=== PATIENT | female | born 1935 | race Caucasian/White ===

== ENCOUNTER 2016-07-17 15:02 | Inpatient (IN) | payer BC, OTHER ==
[~2016-07-17] VITALS: Ht 152.4 cm; Wt 43.1 kg
[2016-07-17] MEDS ORDERED: TEMA15CA5 PO (15:17)
[2016-07-17] MEDS ORDERED: MIRT15TA PO (15:17)
[2016-07-17] MEDS ORDERED: LOVA40TA2 PO (15:17)
[2016-07-17] MEDS ORDERED: LISI1TAB13 PO (15:17)
--- NOTE | 2016-07-17 15:41 | NUR ---
MSE COMPLETED, SBAR REPORT TO CORY HUERTA, BELONGING LIST DONE, ADMIT ORDER WRITTEN. PT TO U.
[2016-07-17] MEDS ORDERED: LORAZEPAM 1 MG TABLET PO PRN (16:15)
[2016-07-17] MEDS ORDERED: ACETAMINOPHEN 325 MG TABLET PO PRN (16:15)
[2016-07-17] MEDS ORDERED: MAG HYDROX/AL HYDROX/SIMETH 30 ML LIQUID UDC PO PRN (16:15)
[2016-07-17] MEDS ORDERED: MAGNESIUM HYDROXIDE 30 ML LIQUID UDC PO PRN (16:15)
[2016-07-17] MEDS ORDERED: LORAZEPAM 0.5 MG TABLET PO PRN (16:15)
[2016-07-17 20:02] VITALS: BP 142/83
[2016-07-17] MEDS: ZOLPIDEM 5 MG TABLET PO PRN (21:39)
[2016-07-18 07:30] VITALS: BP 135/82
[2016-07-18] MEDS: ALPRAZOLAM 0.25 MG TABLET PO SCH (10:39)
[2016-07-18] MEDS: VENLAFAXINE XR 37.5 MG CAP.SR.24H PO SCH (10:39)
[2016-07-18] MEDS: LISINOPRIL 20 MG TABLET PO SCH (12:15)
[2016-07-18] MEDS: HYDROCHLOROTHIAZIDE 25 MG TABLET PO SCH (12:30)
[2016-07-18 15:05] LABS: THYROID STIMULATING HORMONE 1.179 mIU/mL (0.358-3.740)
[2016-07-18 15:42] VITALS: BP 111/63
[2016-07-18] MEDS: ATORVASTATIN 40 MG TABLET PO SCH (20:03)
[2016-07-18 21:04] VITALS: BP 116/66
--- NOTE | 2016-07-18 21:18 | NUR ---
PATIENT RECEIVED IN ACTIVITIES ROOM WATCHING T.V. PATIENT PLEASANT UPON APPROACH, NO AGGRESSIVE OR COMBATIVE BEHAVIOR NOTED WILL CONTINUE TO MONITOR AND REDIRECT NEEDED. PATIENT DENIES SI, WITH FLAT AFFECT WILL CONTINUE TO MONITOR, PATIENT ENCOURAGED TO EXPRESS FEELINGS AND CONCERNS. PATIENT COMPLAINT WITH HS MEDICATION. NO AGITATION NOTED. PATIENT ABLE TO MAKE NEEDS KNOWN, PATIENT DENIES PAIN AT THIS TIME, WILL CONTINUE TO MONITOR.
[2016-07-18] MEDS: ZOLPIDEM 5 MG TABLET PO PRN (21:46)
[2016-07-19 07:30] VITALS: BP 122/73
[2016-07-19 07:35] LABS: BILIRUBIN,TOTAL 0.2 mg/dL (0.2-1.0); CREATININE 0.8 mg/dL (0.6-1.3); MAGNESIUM 1.9 mg/dL (1.8-2.4); PHOSPHOROUS 3.5 mg/dL (2.5-4.9); POTASSIUM 4.2 mmol/L (3.5-5.1); TOTAL PROTEIN, SERUM 6.6 g/dL (6.4-8.2)
[2016-07-19 07:48] LABS: BASOPHILS % (AUTO) 0.8 % (0.0-2.0); EOSINOPHILS # (AUTO) 0.2 K/uL (0.0-0.7); EOSINOPHILS % (AUTO) 4.2 % (0.0-7.0); HEMATOCRIT 34.5 % (37-47); HEMOGLOBIN 11.7 G/DL (12.0-16.0); LYMPHOCYTES # (AUTO) 1.5 K/UL (0.8-4.8); LYMPHOCYTES % (AUTO) 31.2 % (20.5-51.5); MEAN CORPUSCULAR HGB CONC 34 g/dL (32.0-37.0); MEAN CORPUSCULAR VOLUME 85.3 FL (81.0-99.0); MONOCYTES # (AUTO) 0.5 K/UL (0.1-1.30); MONOCYTES % (AUTO) 9.7 % (0.0-11.0); NEUTROPHILS # (AUTO) 2.5 K/UL (1.8-8.9); NEUTROPHILS % (AUTO) 54.1 % (38.5-71.5); PLATELET COUNT (AUTO) 270 K/UL (150-450); RED BLOOD CELL COUNT(AUTO) 4.04 MIL/UL (4.2-5.4); WHITE BLOOD COUNT (AUTO) 4.7 K/UL (4.0-11.2)
[2016-07-19] MEDS: VENLAFAXINE XR 37.5 MG CAP.SR.24H PO SCH (08:22)
[2016-07-19] MEDS: ALPRAZOLAM 0.25 MG TABLET PO SCH (08:23)
[2016-07-19] MEDS: LISINOPRIL 20 MG TABLET PO SCH (08:23)
[2016-07-19] MEDS: HYDROCHLOROTHIAZIDE 25 MG TABLET PO SCH (08:23)
--- NOTE | 2016-07-19 12:49 | NUR ---
Initial discharge instructions: Pt resides at home with her son and caregiver [[address] [place],[address];[phone]].Per pt,she would like to return home with her son upon discharge.QUINTON unable to contact pt's son,Mike due to being developmentally disabled (autism).Therefore,QUINTON called and left a voicemail for pt's caregiver-Mackenzie Delilah [phone].QUINTON will speak with pt,caregiver,and MD regarding appropriate discharge plans.QUINTON will form a safe and proper discharge.
[2016-07-19 15:10] VITALS: BP 122/68
--- NOTE | 2016-07-19 16:19 | NUR ---
UR Note: QUINTON faxed current clinicals to [facility] SCHUSTER [ /Fx: [phone]]. Awaiting authorization, Tracking #[id number].
[2016-07-19 20:06] VITALS: BP 112/54
[2016-07-19] MEDS: ATORVASTATIN 40 MG TABLET PO SCH (20:47)
[2016-07-19] MEDS: ZOLPIDEM 5 MG TABLET PO PRN (21:46)
[2016-07-20 07:30] VITALS: BP 120/71
[2016-07-20 07:35] LABS: *BILIRUBIN,URIN NEGATIVE (NEGATIVE); *BLOOD, URINE NEGATIVE (NEGATIVE); *CLARITY,URINE CLEAR (CLEAR); *COLOR,URINE YELLOW (YELLOW); *KETONES,URINE NEGATIVE (NEGATIVE); *PROTEIN,URINE NEGATIVE (NEGATIVE); *UROBILINOGEN,URINE 0.2 E.U./dl (NORMAL); LEUKOCYTE ESTERASE ,URINE NEGATIVE (NEGATIVE); NITRITE, URINE NEGATIVE (NEGATIVE); UGLUCOSE NEGATIVE (NEGATIVE)
[2016-07-20 08:13] LABS: BACTERIA,URINE FEW /HPF (NONE SEEN); RBC,URINE 0-3 /HPF (0-3); SQUAMOUS EPITHELIAL CELL,UR FEW /HPF (NONE SEEN); WBC,URINE 0-3 /HPF (0-3)
[2016-07-20] MEDS: VENLAFAXINE XR 37.5 MG CAP.SR.24H PO SCH (08:25)
[2016-07-20] MEDS: ALPRAZOLAM 0.25 MG TABLET PO SCH (08:25)
[2016-07-20] MEDS: LISINOPRIL 20 MG TABLET PO SCH (08:26)
[2016-07-20] MEDS: HYDROCHLOROTHIAZIDE 25 MG TABLET PO SCH (08:26)
--- NOTE | 2016-07-20 10:00 | NUR ---
PATIENT IS AWAKE ALERT AND VERBALLY RESPONSIVE,DENIES SUICIDAL THOUGHTS BUT STATED THAT SHE IS ANXIOUS ABOUT SITUATION BUT DID NOT ELABORATE BUT SHE IS COPING THE BEST SHE CAN.
--- NOTE | 2016-07-20 12:26 | NUR ---
UR Note: QUINTON faxed current clinicals to Marti SCHUSTER with [facility] [ /Fx: [phone]]. Per Celia there is no authorization, # at this time. Tracking #[id number].
[2016-07-20 16:00] VITALS: BP 107/58
[2016-07-20 20:18] VITALS: BP 112/64
[2016-07-20] MEDS: ATORVASTATIN 40 MG TABLET PO SCH (21:27)
[2016-07-20] MEDS: ZOLPIDEM 5 MG TABLET PO PRN (21:28)
[2016-07-21 07:30] VITALS: BP 108/55
[2016-07-21] MEDS: VENLAFAXINE XR 37.5 MG CAP.SR.24H PO SCH (08:15)
[2016-07-21] MEDS: LISINOPRIL 20 MG TABLET PO SCH (08:16)
[2016-07-21] MEDS: HYDROCHLOROTHIAZIDE 25 MG TABLET PO SCH (08:17)
[2016-07-21] MEDS: ALPRAZOLAM 0.25 MG TABLET PO SCH (08:17)
[2016-07-21 16:00] VITALS: BP 100/61
--- NOTE | 2016-07-21 16:21 | NUR ---
UR Note: QUINTON faxed current clinicals to Marti SCHUSTER with [facility] [ ext.[phone] /Fx: [phone]]. QUINTON awaiting Authorization #/Tracking #[id number].
[2016-07-21 20:26] VITALS: BP 104/55
[2016-07-21] MEDS: ATORVASTATIN 40 MG TABLET PO SCH (21:45)
[2016-07-21] MEDS: ZOLPIDEM 5 MG TABLET PO PRN (21:46)
[2016-07-22 07:30] VITALS: BP 108/55
[2016-07-22 08:01] VITALS: BP 108/55
[2016-07-22] MEDS: HYDROCHLOROTHIAZIDE 25 MG TABLET PO SCH (08:01)
[2016-07-22] MEDS: LISINOPRIL 20 MG TABLET PO SCH (08:01)
--- NOTE | 2016-07-22 08:42 | NUR ---
DC Note: Patient will be discharged home [[address] [place], [address]; [phone]] via private transportation at 12:00 pm. Patient will be picked up by her caregiver, Mackenzie Mazariegos [phone]. Patient is aware and agreeable with discharge plans. Patient will follow-up with ([facility] [facility]) [[address] [place] [address]; ]. Patient was instructed to call and follow-up with Tiff Toscano (N.P.) [[address] [facility], [address], [place], [address]; [phone]] (availability in the next 7 days), and Dr.Elsa Carmen (Psychologist) [[address] [facility], [place], [address]; [phone]]. Patient must and call and state she is a priority patient that is contracted with [facility].
[2016-07-22] MEDS: ALPRAZOLAM 0.25 MG TABLET PO SCH (09:17)
[2016-07-22] MEDS: VENLAFAXINE XR 37.5 MG CAP.SR.24H PO SCH (09:17)
--- NOTE | 2016-07-22 12:37 | NUR ---
PATIENT IS ALERT/ORIENTED X 4. PT IS BEING PICKED UP BY HER CAREGIVER PETER. DISCHARGE INSTRUCTIONS ARE GIVEN. PT VERBALIZES UNDERSTANDING AND STATES SHE WILL GO TO HER PHARMACY TO FILL THE PRESCRIPTIONS. PT DENIES ANY S.I. ALL BELONGINGS RETURNED AND FORMS SIGNED.
== END 2016-07-22 11:50 | disposition home or self-care (01) | DRG 751 ==
LOC: ER 15:06 → GPS 15:49
PROVIDERS: ADMIT Psychiatry & Neurology Psychiatry
DX: F33.9 Major depressive disorder, recurrent, unspecified (principal); N17.0 Acute kidney failure with tubular necrosis; D63.8 Anemia in other chronic diseases classified elsewhere; E78.5 Hyperlipidemia, unspecified; G47.00 Insomnia, unspecified; F41.9 Anxiety disorder, unspecified; Z59.9 Problem related to housing and economic circumstances, unspecified; Z79.899 Other long term (current) drug therapy; I10 Essential (primary) hypertension
CPT/HCPCS: 36415; 83735; 84100; 84443; 85025; 87077; 87086; A4663